=== PATIENT | female | born 1990 | race African-American/Black ===

== ENCOUNTER 2018-09-03 21:38 | Emergency (ER) | payer MEDICAID ==
[~2018-09-03] VITALS: Ht 167.6 cm; Wt 68.0 kg
[2018-09-03 21:48] VITALS: BP 119/78
== END 2018-09-04 01:00 | disposition left against medical advice (07) ==
LOC: ER 21:38
DX: Z53.21 Procedure and treatment not carried out due to patient leaving prior to being seen by health care provider (principal)